=== PATIENT | male | born 1965 | race Caucasian/White ===

== ENCOUNTER 2018-01-24 18:41 | Emergency (ER) | payer MEDICARE, OTHER ==
[~2018-01-24] VITALS: Ht 177.8 cm; Wt 85.0 kg
[~2018-01-24 18:41] MED LIST: LEVA750T PO; SERT100 PO
[2018-01-24 18:46] VITALS: BP 160/65; PULSE 93; RESP 16; TEMP 97.8
--- NOTE | 2018-01-24 20:23 | PD ---
HPI Chief Complaint: Exposure to Blood/Body Fluids Time Seen by Provider: 20:07 Travel History International Travel<30 days: No Contact w/Intl Traveler<30days: No Traveled to known affect area: No History of Present Illness HPI 52-year-old male presents to the emergency department with concern of exposure to HIV during sexual intercourse today. He was having sexual intercourse with a male partner and the condom broke inside of him. The patient himself was recently tested for HIV 1 month ago and was negative. Patient reports consensual intercourse. Patient states the sexual partner stated his HIV is undetectable. The patient called his primary care provider and was told to come to the ER to start postexposure therapy. Symptoms are moderate to severe in severity. No known aggravating or relieving factors. Has not taken any medications or try any treatments to alleviate his symptoms. Family care provider is Dr. Feng. No known allergies. History of depression and herniated disks. Has no other medical complaints. No other modifying factors or associated signs and symptoms. PFSH Past Medical History Bipolar Disorder: Yes Diabetes: No Immunizations Current: Yes Tetanus Vaccination: Unknown Influenza Vaccination: No Past Surgical History Abdominal Surgery: Yes (Splenectomy) Social History Alcohol Use: No Tobacco Use: No Substance Use: Yes (Daily marijuana use) Allergies-Medications (Allergen,Severity, Reaction): Coded Allergies: No Known Allergies (Unverified Adverse Reaction, Unknown, 01/24/18) Reported Meds & Prescriptions Reported Meds & Active Scripts Active Kaletra (Lopinavir/Ritonavir) 200-50 Mg Tab 2 Tab PO Q12HR 28 Days Fill this 5 day prescription first & begin taking Kaletra 12 hours after the first dose received in the Emergency Department as prescribed. Zidovudine 100 Mg Cap 300 Mg PO Q12HR 28 Days Lamivudine 150 Mg Tab 150 Mg PO BID 28 Days Protonix (Pantoprazole Sodium) 40 Mg Tab 40 Mg PO DAILY Zofran Odt (Ondansetron Odt) 4 Mg Tab 4 Mg SL Q8HR PRN Reported Levaquin 750 Mg Tab (Levofloxacin) 750 Mg Tab 750 Mg PO DAILY Zoloft (Sertraline HCl) 100 Mg Tab 100 Mg PO DAILY Review of Systems Except as stated in HPI: all other systems reviewed are Neg Physical Exam Narrative GENERAL: Well-nourished, well-developed patient, in no acute distress SKIN: Warm and dry. HEAD: Atraumatic. Normocephalic. EYES: Pupils equal and round. No scleral icterus. No injection or drainage. ENT: Mucosa pink and moist. Airway patent. NECK: Trachea midline. CARDIOVASCULAR: Regular rate. RESPIRATORY: No accessory muscle use. GASTROINTESTINAL: Rounded. MUSCULOSKELETAL: No obvious deformities. No clubbing. No cyanosis. No edema. NEUROLOGICAL: Awake and alert. Oriented 3. No obvious cranial nerve deficits. Motor grossly within normal limits. Normal speech. PSYCHIATRIC: Appropriate mood and affect; insight and judgment normal. Data Data Last Documented VS Vital Signs Date Time Temp Pulse Resp B/P (MAP) Pulse Ox O2 Delivery O2 Flow Rate FiO2 01/24/18 18:46 97.8 93 16 160/65 (96) Orders Orders Complete Blood Count With Diff (01/24/18 20:08) Comprehensive Metabolic Panel (01/24/18 20:08) Amylase (01/24/18 20:08) Hiv 1 2 Ab Differentiation (01/24/18 20:35) Hepatitis Profile (01/24/18 20:45) Lamivudine (Epivir) (01/24/18 22:00) Lopinavir-Ritonavir 200-50 Mg (Kaletra 2 (01/24/18 22:00) Zidovudine (Retrovir) (01/24/18 22:00) Ed Discharge Order (01/24/18 21:59) Ondansetron Odt (Zofran Odt) (01/24/18 22:45) Labs Laboratory Tests Test 01/24/18 00:45 01/24/18 20:45 White Blood Count 12.9 TH/MM3 Red Blood Count 5.06 MIL/MM3 Hemoglobin 16.0 GM/DL Hematocrit 47.8 % Mean Corpuscular Volume 94.6 FL Mean Corpuscular Hemoglobin 31.7 PG Mean Corpuscular Hemoglobin Concent 33.5 % Red Cell Distribution Width 13.5 % Platelet Count 232 TH/MM3 Mean Platelet Volume 11.5 FL Neutrophils (%) (Auto) 56.7 % Lymphocytes (%) (Auto) 29.1 % Monocytes (%) (Auto) 11.8 % Eosinophils (%) (Auto) 1.3 % Basophils (%) (Auto) 1.1 % Neutrophils # (Auto) 7.3 TH/MM3 Lymphocytes # (Auto) 3.7 TH/MM3 Monocytes # (Auto) 1.5 TH/MM3 Eosinophils # (Auto) 0.2 TH/MM3 Basophils # (Auto) 0.1 TH/MM3 CBC Comment DIFF FINAL Differential Comment Blood Urea Nitrogen 8 MG/DL Creatinine 1.03 MG/DL Random Glucose 100 MG/DL Total Protein 8.1 GM/DL Albumin 4.2 GM/DL Calcium Level 9.2 MG/DL Alkaline Phosphatase 56 U/L Aspartate Amino Transf (AST/SGOT) 28 U/L Alanine Aminotransferase (ALT/SGPT) 44 U/L Total Bilirubin 0.9 MG/DL Sodium Level 141 MEQ/L Potassium Level 3.8 MEQ/L Chloride Level 106 MEQ/L Carbon Dioxide Level 25.0 MEQ/L Anion Gap 10 MEQ/L Estimat Glomerular Filtration Rate 76 ML/MIN Amylase Level 33 U/L Hepatitis A IgM Antibody NONREACTIVE Hepatitis B Surface Antigen NONREACTIVE Hepatitis B Core IgM Antibody NONREACTIVE Hepatitis C IgG Antibody NONREACTIVE HIV (1&2) Ab and P24 Ag, 4th Gener NONREACTIVE MDM Medical Decision Making Medical Screen Exam Complete: Yes Emergency Medical Condition: Yes Medical Record Reviewed: Yes Differential Diagnosis HIV exposure, post exposure prophylaxis, medical clearance Narrative Course 52-year-old male that was exposed to HIV during sexual intercourse today after a condom broke. His partner is HIV positive with undetectable viral load, per the patient. He was told to come for PEP therapy by his primary care provider. Patient reports being tested for HIV 1 month ago and was negative. I discussed the patient with Dr. Allison and plan of care discussed. CBC, CMP, amylase, hepatitis panel, HIV ordered. HIV consent obtained from the patient. Patient will be administered his first dose of PEP medications after LFTs result. Prescriptions for PEP medications, Protonix, Zofran prescribed for home. Instructed patient to follow-up with primary care, [facility], and infectious disease. He states his primary care provider has already contacted infectious disease and an appointment is being made. Instructed patient to follow up with primary care provider. Patient verbalizes understanding and agreement with treatment plan. Patient is medically cleared and stable for discharge. Discussed reasons to return to the emergency department. Patient agrees with treatment plan. The patients vital signs are stable and the patient is stable for outpatient follow-up and treatment. Patient discharged home, stable and in no acute distress. 2100: Report was given to Moe nightly at this time. Labs pending and he will order the first dose of PEP medications after labs result. And then the patient will be discharged home. Diagnosis Primary Impression: HIV exposure Referrals: Primary Care Physician [facility] Patient Instructions: Postexposure Prophylaxis (ED) Additional Instructions: Your first dose of medications was provided in the emergency department Start your medications as prescribed in regards to receiving your first dose in the ER Zofran as needed and as directed for nausea/vomiting Protonix daily as directed Follow-up with infectious disease Follow-up with your primary care provider Follow-up with [facility] Return to the emergency department immediately with worsening of symptoms Med/Other Pt SpecificInfo: Prescription(s) given Scripts Lopinavir-Ritonavir (Kaletra) 200-50 Mg Tab 2 TAB PO Q12HR for Mgmt Viral Infection for 28 Days, #92 TAB 0 Refills Fill this 5 day prescription first & begin taking Kaletra 12 hours after the first dose received in the Emergency Department as prescribed. Prov: Cathleen Jaime 01/24/18 Zidovudine (Zidovudine) 100 Mg Cap 300 MG PO Q12HR for Mgmt Viral Infection for 28 Days, #138 CAP 0 Refills Prov: Cathleen Jaime 01/24/18 Lamivudine (Lamivudine) 150 Mg Tab 150 MG PO BID for Mgmt Viral Infection for 28 Days, #56 TAB 0 Refills Prov: Cathleen Jaime 01/24/18 Pantoprazole (Protonix) 40 Mg Tab 40 MG PO DAILY for Reflux, #30 TAB 0 Refills Prov: Cathleen Jaime 01/24/18 Ondansetron Odt (Zofran Odt) 4 Mg Tab 4 MG SL Q8HR Y for Nausea/Vomiting, #30 TAB 0 Refills Prov: Cathleen Jaime 01/24/18 Disposition: 01 DISCHARGE HOME Condition: Stable Cathleen Jaime Jan 24, 2018 20:23
[2018-01-24] MEDS ORDERED: ZOFR4TAB3 SL (20:45)
[2018-01-24] MEDS ORDERED: LAMI1TAB7 PO ×2 (20:45→21:06)
[2018-01-24] MEDS ORDERED: PROT40TA PO (20:45)
[2018-01-24] MEDS ORDERED: KALETRA200 PO ×2 (20:45→21:06)
[2018-01-24] MEDS ORDERED: ZIDO100C4 PO ×2 (20:45→21:06)
[2018-01-24 21:15] LABS: AUTOMATED NEUTROPHIL # 7.3 TH/MM3 (1.8-7.7); BASOPHIL # 0.1 TH/MM3 (0-0.2); BASOPHIL % 1.1 % (0.0-2.0); EOSINOPHIL # 0.2 TH/MM3 (0-0.4); EOSINOPHIL % 1.3 % (0.0-4.0); HEMATOCRIT 47.8 % (39.0-51.0); LYMPH % 29.1 % (9.0-44.0); LYMPHOCYTE # 3.7 TH/MM3 (1.0-4.8); MEAN CELL VOLUME 94.6 FL (80.0-100.0); MEAN CORPUSCULAR HEMOGLOBIN 31.7 PG (27.0-34.0); MEAN CORPUSCULAR HGB CONC 33.5 % (32.0-36.0); MEAN PLATELET VOLUME 11.5 FL (7.0-11.0); MONO % 11.8 % (0.0-8.0); MONOCYTE # 1.5 TH/MM3 (0-0.9); NEUT % 56.7 % (16.0-70.0); PLATELET COUNT 232 TH/MM3 (150-450); RED BLOOD COUNT 5.06 MIL/MM3 (4.50-5.90); RED CELL DISTRIBUTION WIDTH 13.5 % (11.6-17.2); WHITE BLOOD COUNT 12.9 TH/MM3 (4.0-11.0)
[2018-01-24 21:36] LABS: ALT (GPT) 44 U/L (12-78)
[2018-01-24 21:37] LABS: ALKALINE PHOSPHATASE 56 U/L (45-117); TOTAL BILIRUBIN ADULT 0.9 MG/DL (0.2-1.0); TOTAL PROTEIN 8.1 GM/DL (6.4-8.2)
[2018-01-24 21:41] LABS: ALBUMIN 4.2 GM/DL (3.4-5.0); AST (GOT) 28 U/L (15-37); BLOOD UREA NITROGEN 8 MG/DL (7-18); CALCIUM 9.2 MG/DL (8.5-10.1); CHLORIDE 106 MEQ/L (98-107); CREATININE 1.03 MG/DL (0.60-1.30); GLOMERULAR FILTRATION RATE 76 ML/MIN (>89); GLUCOSE,RANDOM 100 MG/DL (74-106); SODIUM (NA) 141 MEQ/L (136-145)
[2018-01-24] MEDS ORDERED: LOPINAVIR/RITONAVIR 200 MG/50 MG TAB PO ONE (22:00)
[2018-01-24] MEDS ORDERED: ZIDOVUDINE 100 MG CAP PO ONE (22:00)
--- NOTE | 2018-01-24 22:01 | PD ---
Physical Exam Date Seen by Provider: Jan 24, 2018 Time Seen by Provider: 21:59 Data Data Last Documented VS Vital Signs Date Time Temp Pulse Resp B/P (MAP) Pulse Ox O2 Delivery O2 Flow Rate FiO2 01/24/18 18:46 97.8 93 16 160/65 (96) Orders Orders Complete Blood Count With Diff (01/24/18 20:08) Comprehensive Metabolic Panel (01/24/18 20:08) Amylase (01/24/18 20:08) Hiv 1 2 Ab Differentiation (01/24/18 20:35) Hepatitis Profile (01/24/18 20:45) Lamivudine (Epivir) (01/24/18 22:00) Lopinavir-Ritonavir 200-50 Mg (Kaletra 2 (01/24/18 22:00) Zidovudine (Retrovir) (01/24/18 22:00) Ed Discharge Order (01/24/18 21:59) Labs Laboratory Tests Test 01/24/18 00:45 01/24/18 20:45 White Blood Count 12.9 TH/MM3 Red Blood Count 5.06 MIL/MM3 Hemoglobin 16.0 GM/DL Hematocrit 47.8 % Mean Corpuscular Volume 94.6 FL Mean Corpuscular Hemoglobin 31.7 PG Mean Corpuscular Hemoglobin Concent 33.5 % Red Cell Distribution Width 13.5 % Platelet Count 232 TH/MM3 Mean Platelet Volume 11.5 FL Neutrophils (%) (Auto) 56.7 % Lymphocytes (%) (Auto) 29.1 % Monocytes (%) (Auto) 11.8 % Eosinophils (%) (Auto) 1.3 % Basophils (%) (Auto) 1.1 % Neutrophils # (Auto) 7.3 TH/MM3 Lymphocytes # (Auto) 3.7 TH/MM3 Monocytes # (Auto) 1.5 TH/MM3 Eosinophils # (Auto) 0.2 TH/MM3 Basophils # (Auto) 0.1 TH/MM3 CBC Comment DIFF FINAL Differential Comment Blood Urea Nitrogen 8 MG/DL Creatinine 1.03 MG/DL Random Glucose 100 MG/DL Total Protein 8.1 GM/DL Albumin 4.2 GM/DL Calcium Level 9.2 MG/DL Alkaline Phosphatase 56 U/L Aspartate Amino Transf (AST/SGOT) 28 U/L Alanine Aminotransferase (ALT/SGPT) 44 U/L Total Bilirubin 0.9 MG/DL Sodium Level 141 MEQ/L Potassium Level 3.8 MEQ/L Chloride Level 106 MEQ/L Carbon Dioxide Level 25.0 MEQ/L Anion Gap 10 MEQ/L Estimat Glomerular Filtration Rate 76 ML/MIN Amylase Level 33 U/L [facility] Medical Record Reviewed: Yes Supervised Visit with DMITRI: Yes Interpretation(s) Laboratory Tests Test 01/24/18 00:45 01/24/18 20:45 White Blood Count 12.9 TH/MM3 Red Blood Count 5.06 MIL/MM3 Hemoglobin 16.0 GM/DL Hematocrit 47.8 % Mean Corpuscular Volume 94.6 FL Mean Corpuscular Hemoglobin 31.7 PG Mean Corpuscular Hemoglobin Concent 33.5 % Red Cell Distribution Width 13.5 % Platelet Count 232 TH/MM3 Mean Platelet Volume 11.5 FL Neutrophils (%) (Auto) 56.7 % Lymphocytes (%) (Auto) 29.1 % Monocytes (%) (Auto) 11.8 % Eosinophils (%) (Auto) 1.3 % Basophils (%) (Auto) 1.1 % Neutrophils # (Auto) 7.3 TH/MM3 Lymphocytes # (Auto) 3.7 TH/MM3 Monocytes # (Auto) 1.5 TH/MM3 Eosinophils # (Auto) 0.2 TH/MM3 Basophils # (Auto) 0.1 TH/MM3 CBC Comment DIFF FINAL Differential Comment Blood Urea Nitrogen 8 MG/DL Creatinine 1.03 MG/DL Random Glucose 100 MG/DL Total Protein 8.1 GM/DL Albumin 4.2 GM/DL Calcium Level 9.2 MG/DL Alkaline Phosphatase 56 U/L Aspartate Amino Transf (AST/SGOT) 28 U/L Alanine Aminotransferase (ALT/SGPT) 44 U/L Total Bilirubin 0.9 MG/DL Sodium Level 141 MEQ/L Potassium Level 3.8 MEQ/L Chloride Level 106 MEQ/L Carbon Dioxide Level 25.0 MEQ/L Anion Gap 10 MEQ/L Estimat Glomerular Filtration Rate 76 ML/MIN Amylase Level 33 U/L Differential Diagnosis . Narrative Course Patient is given his first dose of post exposure prophylaxis here in the ER. The patient is discharged with prescriptions and he will follow-up for further evaluation and treatment. Diagnosis Primary Impression: HIV exposure [facility] Patient Instructions: Postexposure Prophylaxis (ED) Additional Instruction: Your first dose of medications was provided in the emergency department Start your medications as prescribed in regards to receiving your first dose in the ER Zofran as needed and as directed for nausea/vomiting Protonix daily as directed Follow-up with infectious disease Follow-up with your primary care provider Follow-up with [facility] Return to the emergency department immediately with worsening of symptoms Med/Other Pt SpecificInfo: Prescription(s) given Scripts Lopinavir-Ritonavir (Kaletra) 200-50 Mg Tab 2 TAB PO Q12HR for Mgmt Viral Infection for 28 Days, #92 TAB 0 Refills Fill this 5 day prescription first & begin taking Kaletra 12 hours after the first dose received in the Emergency Department as prescribed. Prov: Cathleen Jaime CARE MANAGEMENT ASSOCIATE 01/24/18 Zidovudine (Zidovudine) 100 Mg Cap 300 MG PO Q12HR for Mgmt Viral Infection for 28 Days, #138 CAP 0 Refills Prov: Cathleen Jaime CARE MANAGEMENT ASSOCIATE 01/24/18 Lamivudine (Lamivudine) 150 Mg Tab 150 MG PO BID for Mgmt Viral Infection for 28 Days, #56 TAB 0 Refills Prov: Cathleen Jaime CARE MANAGEMENT ASSOCIATE 01/24/18 Pantoprazole (Protonix) 40 Mg Tab 40 MG PO DAILY for Reflux, #30 TAB 0 Refills Prov: Cathleen Jaime CARE MANAGEMENT ASSOCIATE 01/24/18 Ondansetron Odt (Zofran Odt) 4 Mg Tab 4 MG SL Q8HR Y for Nausea/Vomiting, #30 TAB 0 Refills Prov: CinthiaCathleen headley CARE MANAGEMENT ASSOCIATE 01/24/18 Disposition: 01 DISCHARGE HOME Condition: Stable Moe Gamble Jan 24, 2018 22:01
[2018-01-24] MEDS ORDERED: ONDANSETRON ODT 4 MG TAB PO ONE (22:45)
== END 2018-01-24 22:51 | disposition home or self-care (01) ==
LOC: NEPK 18:41 → NEPD 22:51
DX: Z20.6 Contact with and (suspected) exposure to human immunodeficiency virus [HIV] (principal); F31.9 Bipolar disorder, unspecified; Z79.899 Other long term (current) drug therapy
CPT/HCPCS: 80053; 80074; 82150; 85025; 99283; G0475; 87389